=== PATIENT | male | born 1955 | race Asian ===

== ENCOUNTER 2022-11-13 09:38 | Day surgery (SDC) | payer MEDICARE, BC, SELFPAY ==
--- NOTE | 2022-11-12 07:25 | HPS.HSE ---
Family Physician
-
Family Physician: NO INTERVIEW UNKNOWN
Chief Complaint
-
Ventricular tachycardia. Cardiomyopathy.
History of Present Illness
The patient is a 67 year old male presenting today for cardiomyopathy and ventricular tachycardia. 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 He is noted to have a preserved ejection fraction on his most recent
echocardiogram from October 2020. He has undergone 3 ventricular tachycardia ablations and 1 cardioversion secondary to his arrhythmia. He ultimately had a Medtronic dual chamber ICD placed in June 2013 secondary to sustained ventricular
tachycardia. His arrhythmia has been refractory to Sotalol in the past. He previously was on Amiodarone for pharmacological therapy; however, this was stopped due to no sustained arrhythmias noted on his most recent device checks and per patient
preference. His last device check in late October 2022 revealed an estimated battery life of 1 month remaining. He will therefore undergo an dual chamber ICD generator change. He is scheduled to undergo this procedure on 11/13/[address] Cooley
Prieto. He denies any current complaints today such as chest pain, shortness of breath, palpitations, nausea, vomiting, diarrhea, lightheadedness, dizziness, cough, sore throat, or fever.
Medical History
Past Medical History
Past Medical History: Reports Other
Additional Past Medical History:
1. Ventricular tachycardia, status post ablation x3 and cardioversion.
2. Status post Medtronic dual chamber ICD implantation, 06/2013, secondary to sustained ventricular tachycardia.
3. Cardiomyopathy, preserved ejection fraction.
4. Hypertension.
5. Hyperlipidemia.
6. Non-obstructive coronary artery disease on cardiac cath 2013.
7. Non-insulin dependent diabetes.
8. Colon polyps.
9. Hypothyroidism.
10. Thyroid cysts.
11. History of hypokalemia in the setting of prep for colonoscopy.
12. Lyme disease, on current Doxycycline.
13. Hearing impairment.
14. Remote history of tobacco abuse.
Past Surgical History: Reports Other
Additional Past Surgical History:
1. Ventricular tachycardia ablation x3.
2. Cardioversion.
3. Dual chamber ICD implantation.
4. Cardiac catheterization.
Social History
Tobacco: Other (He reports infrequent tobacco use over 30 years ago. )
Alcohol: None (He denies any current alcohol use. )
Personal: Other (The patient lives in a 2 story home with his spouse. )
Employment: Retired
Family History
Family History: Not pertinent
Allergies / Home Medications
Allergy/Medication List:
Allergies: None.
Home medications:
1. Amlodipine 5 mg p.o. daily.
2. Atorvastatin 10 mg p.o. at bedtime.
3. Caltrate 1 tab p.o. daily.
4. Cholecalciferol 2,000 units p.o. daily.
5. Cinnamon bark 1,000 mg p.o. twice a day.
6. CoQ10 1 tab p.o. daily.
7. Doxycycline hyclate 100 mg p.o. twice a day.
8. Levothyroxine 88 mcg p.o. daily.
9. Losartan 50 mg p.o. twice a day.
10. Metformin 500 mg p.o. twice a day.
11. Multivitamin with iron and folate 1 tab p.o. daily.
12. Nebivolol 10 mg p.o. twice a day.
13. Klor-Con 20 mEq p.o. twice a day.
Review of Systems
-
A 12 point ROS was completed and negative except as noted: Yes
Physical Exam
Vital Signs
Blood pressure 171/114. Repeat blood pressure 144/82 after taking anti-hypertensives. Heart rate 74. Respirations 18. Pulse ox 100%.
Height 5 feet, 5.5 inches. Weight 72 kg. BMI 26.0.
Physical Exam
General: Well Developed, Well Nourished and No Apparent Distress
HEENT: NormoCephalic and PERRLA
Respiratory: Clear
Cardiac: Regular Rhythm and Other (ICD. )
GI: Soft, Non Tender and Non Distended
Musculoskeletal: No Edema and Normal Gait & Station
Skin: Warm and Dry
Neuro: AO x 3
Psych: Calm and Intact Judgment/Insight
Laboratory Results
-
DIAGNOSTIC STUDIES as of 11/12/2022: White blood cell count 5.1. Hemoglobin 13.8. Platelet count 270. Sodium 137. Potassium 4.2. BUN 20. Creatinine 0.9. Glucose 112. Magnesium 2.3. Calcium 9.0. AST 25. ALT 19. Albumin 4.2.
EKG 11/12/2022: Atrial-paced rhythm with prolonged AV conduction. Inferior infarct, cited on or before 07/01/2013.
Echocardiogram 11/01/2020: Normal left ventricular size,and systolic function. No regional wall motion abnormalities are seen. LV ejection fraction is 57% by Madrid's biplane method of discs. Mild concentric left ventricular hypertrophy. Stage I
diastolic dysfunction suggestive of abnormal relaxation. The right ventricle is mildly dilated with focal hypokinesis and overall mildly reduced right ventricular systolic function.�ICD wire seen in right atrium and right ventricle. No significant
valvular disease. Compared to prior echocardiogram from December 11, 2018, there is no significant change.
Impression/Plan
-
IMPRESSION/PLAN:
1. Ventricular tachycardia and cardiomyopathy: The patient is in need of a dual chamber ICD generator change on 11/13/[address] Yasir Moreau. The benefits and risks of the procedure have been explained to the patient. The patient understands
these risks and wishes to proceed.
[2022-11-12 08:09] VITALS: BMI 26.0
[2022-11-13] VITALS (8 sets, daily range): BP systolic 146–172; BP diastolic 85–100
[2022-11-13 09:58] LABS: Hematocrit 40.4 % (39.0-52.0); Hemoglobin 13.4 g/dL (13.0-18.0); Mean Corp Hgb Conc. 33.2 g/dL (33.0-37.0); Mean Corpuscular Hgb 29.3 pg (27.0-31.0); Mean Corpuscular Volume 88.2 fL (80.0-94.0); Mean Platelet Volume 9.3 fL (7.4-10.4); Platelet Count 254 10^3/uL (130-400); Red Blood Cell Count 4.58 10^6/uL (4.70-6.10); Red Cell Dist. Width 12.7 % (11.5-14.5); White Blood Cell Count 5.6 10^3/uL (4.8-10.8)
[2022-11-13 10:16] LABS: Blood Urea Nitrogen 17 mg/dl (9-20); Calcium 9.2 mg/dl (8.4-10.2); Carbon Dioxide 25 mmol/L (22-30); Chloride 106 mmol/L (98-107); Estimated Creatinine Clearance 63 ml/min; Glomerular Filtration Rate > 60.0; Glucose 109 mg/dl (70-99); Potassium 4.6 mmol/L (3.5-5.1); Sodium 140 mmol/L (135-145)
[2022-11-13 10:35] LABS: Glucose - Point of Care 108 mg/dl (70-99)
--- NOTE | 2022-11-13 10:47 | W.ICD.CONTRA ---
Post ICD/FBI FIELD AGENT-D
-
History of MS?: No
LV Function
Left ventricular function study result?: Ejection Fraction >/= 40%
ACEI/ARB/ARNI
Patient already on ACEI/ARB/ARNI: Yes
Beta-Sis
Patient already on Beta Sis: Yes
--- NOTE | 2022-11-13 13:28 | ITS.CL.ICD ---
Senior Application Security Consultant - ICD
Implantable Cardioverter Defibrillator
Procedure Report:
ICD GENERATOR CHANGE REPORT
Date of Procedure: November 13, 2022
Primary Care Provider: Dr Avinash Hagan
PROCEDURES:
1. Removal of ICD Generator, 2. ICD Implant
INDICATION FOR PROCEDURE:
1. ICD at [employer]
2. Arrhythmogenic right ventricular cardiomyopathy
3. Recurrent sustained hemodynamically unstable ventricular tachycardia
Initial indication for implant is secondary prevention for recurrent sustained hemodynamically unstable ventricular tachycardia
Life expectancy > 1 yr
HISTORY: Arrhythmogenic right ventricular cardiomyopathy with recurrent sustained hemodynamically unstable ventricular tachycardia
'Time-out' was called and confirmed. The patient was prepped and draped in sterile fashion. Lidocaine with epi was used for local anesthesia. An incision was made along the previous incision and the device and leads were carefully dissected from
the pocket. Hemostasis was obtained with electrocautery. The leads were from the device header and tested using an external analyzer. The pocket was liberally irrigated with antibiotic solution. Once testing (see below) showed adequate
and stable function, the leads were connected to the generator header and the leads and generator were placed within the pocket. The pocket was closed in the typical fashion.
EXISTING ICD Medtronic
IMPLANTED ICD: MEDTRONIC [id number], [id number]
EXISTING LEADS:
RA: Medtronic [id number]
RV: Medtronic [id number]
DEVICE TESTING:
Sensing: RA 1.1 mV, RV 6 mV,
Capture: RA 0.75 V@ 0.4 ms, RV 1 V@ 0.4 ms
Ohms: RA 399, RV 361
FINAL PROGRAMMING:
Manuel Pacing: AAIR <=> DDDR 70-115 ppm
Tachy parameters:
VF: 188 bpm, ATP while charging, Shock
FVT: 128 bpm
Monitor: 118 bpm
CONCLUSIONS:
1. Explant of ICD at [employer]
2. Successful implant ICD generator.
3. Normal function of ICD and leads at implant testing.
RECOMMENDATIONS:
1. Observation and consideration for discharge home later today.
2. In-Office wound check in 7 - 10 days.
Copy to: Dr Avinash Hagan
== END 2022-11-13 14:00 | disposition home or self-care (01) ==
LOC: CATH 09:38
PROVIDERS: ATTENDING PHYSICIAN Internal Medicine Cardiovascular Disease; FAMILY PHYSICIAN Internal Medicine
DX: Z45.02 Encounter for adjustment and management of automatic implantable cardiac defibrillator (principal); I47.20 Ventricular tachycardia, unspecified; I42.9 Cardiomyopathy, unspecified; I10 Essential (primary) hypertension; E78.5 Hyperlipidemia, unspecified; I25.10 Atherosclerotic heart disease of native coronary artery without angina pectoris; E11.9 Type 2 diabetes mellitus without complications; Z86.010 Personal history of colon polyps; E03.9 Hypothyroidism, unspecified; Z86.19 Personal history of other infectious and parasitic diseases; H91.90 Unspecified hearing loss, unspecified ear; Z87.891 Personal history of nicotine dependence; Z79.84 Long term (current) use of oral hypoglycemic drugs
CPT/HCPCS: 33263; 33228; 80048; 82962; 85027; C1721

== ENCOUNTER → 2024-02-05 13:22 | Outpatient (REF) | payer MEDICARE, BC, SELFPAY | LOC: RCS 13:22 | PROVIDERS: ATTENDING PHYSICIAN Internal Medicine Cardiovascular Disease; FAMILY PHYSICIAN Internal Medicine | DX: I10 Essential (primary) hypertension (principal) | CPT/HCPCS: 93306 ==